=== PATIENT | female | born 1990 | race African-American/Black ===

== ENCOUNTER 2016-06-26 07:41 | Emergency (ER) | payer SELFPAY ==
[2016-06-26] MEDS ORDERED: IBUPROFEN 600 MG TABLET PO ONE (09:35)
[2016-06-26] MEDS ORDERED: PSEUDOEPHEDRINE HCL 30 MG TABLET PO ONE (09:35)
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
[2016-06-26 09:55] VITALS: BP 123/82
== END 2016-06-26 09:53 | disposition home or self-care (01) ==
LOC: ER 07:41
DX: J02.9 Acute pharyngitis, unspecified (principal); J06.9 Acute upper respiratory infection, unspecified; Z88.6 Allergy status to analgesic agent
CPT/HCPCS: 87070; 87880; 99283